=== PATIENT | female | born 1945 | race Caucasian/White ===

== ENCOUNTER → 2017-05-08 | Outpatient (CLI) | payer OTHER, MEDICARE | LOC: FIMAGING 13:04 | PROVIDERS: ATTEND Family Medicine | DX: R06.02 Shortness of breath (principal) ==

== ENCOUNTER → 2017-05-09 | Outpatient (CLI) | payer OTHER, MEDICARE | LOC: BHFA 14:00 | PROVIDERS: ATTEND Internal Medicine Interventional Cardiology | DX: R07.9 Chest pain, unspecified (principal); E78.5 Hyperlipidemia, unspecified; I10 Essential (primary) hypertension ==

== ENCOUNTER → 2017-05-22 | Outpatient (CLI) | payer OTHER, MEDICARE | LOC: BHFA 09:15 | PROVIDERS: ATTEND Internal Medicine Cardiovascular Disease | DX: R07.9 Chest pain, unspecified (principal); I10 Essential (primary) hypertension ==

== ENCOUNTER → 2017-06-21 | Outpatient (CLI) | payer OTHER, MEDICARE | LOC: BHFA 13:00 | PROVIDERS: ATTEND Internal Medicine Cardiovascular Disease | DX: R94.39 Abnormal result of other cardiovascular function study (principal) | CPT/HCPCS: 78452; 93017; A9500; J2785 ==

== ENCOUNTER → 2017-11-01 | Outpatient (CLI) | payer OTHER, MEDICARE | LOC: BMCIMAGING 15:17 | PROVIDERS: ATTEND Family Medicine | DX: R05 Cough (principal); R06.02 Shortness of breath ==

== ENCOUNTER 2017-11-17 07:31 | Observation (INO) | payer OTHER, MEDICARE ==
[2017-11-17] MEDS ORDERED: DIAZEPAM 5 MG TAB PO ONE (07:38)
[2017-11-17] MEDS ORDERED: diphenhydrAMINE 25 MG CAP PO ONE ×2 (07:38→08:18)
[2017-11-17] MEDS ORDERED: NS 1,000 ML IV ONE (07:38)
[2017-11-17] MEDS ORDERED: ASPIRIN EC 325 MG TAB PO ONE ×2 (07:38→08:18)
[2017-11-17] MEDS ORDERED: FAMOTIDINE 20 MG TAB PO ONE (07:38)
--- NOTE | 2017-11-17 08:09 | CPEKG ---
Heart Rate: 82 RR Interval: 732 P-R Interval: 148 QRSD Interval: 96 QT Interval: 384 QTC Interval: 449 P [place]: 68 QRS [place]: 35 T Wave [place]: 50 EKG Severity - NORMAL ECG - EKG Impression: SINUS RHYTHM Electronically Signed By: Albert Javier 17-Nov-2017 12:07:21
[2017-11-17] MEDS ORDERED: FAMOTIDINE 20 MG TAB ONE (08:18)
[2017-11-17] MEDS ORDERED: DIAZEPAM 5 MG TAB ONE (08:18)
[2017-11-17 08:22] LABS: PLATELET COUNT 279 10^3/uL (150-400)
[2017-11-17] MEDS ORDERED: LIDOCAINE 1% 300 MG/30 ML SDV ONE (08:31)
[2017-11-17] MEDS ORDERED: MIDAZOLAM 2 MG/2 ML VIAL ONE (08:31)
[2017-11-17] MEDS ORDERED: fentaNYL 100 MCG/2 ML INJ ONE ×2 (08:31→10:16)
[2017-11-17] MEDS ORDERED: IOPAMIDOL (ISOVUE-370) 150 ML BTL IV ONE (08:31)
[2017-11-17] MEDS ORDERED: ASPIRIN EC 81 MG TAB PO ONE (08:40)
[2017-11-17 08:43] LABS: INR 0.95 (0.83-1.16); PROTIME(PATIENT) 12.9 SEC (12.0-15.0)
--- NOTE | 2017-11-17 09:06 | PDPROPOC ---
Sedation Plan of Care Sedation Plan of Care: vital signs stable, mental status noted, patient educated of risks, benefits, alternatives, patient can tolerate sedation ASA Classification: ASA 2 Planned drugs: fentanyl, midazolam Mallampati Score: Class 2 Mallampati Reference Image: Patient passed 3-3-2 rule?: Yes
--- NOTE | 2017-11-17 09:07 | PDHPUP ---
History & Physical Update H&P update statement: This history and physical update is based on an assessment of the patient which was completed after admission or registration (within 24 hours), but prior to the surgery/procedure. H&P update: H&P reviewed & patient examined, no change in patient's condition since H&P completed
[2017-11-17] MEDS ORDERED: HEPARIN 10,000 UNIT/10 ML MDV ONE (09:34)
[2017-11-17] MEDS ORDERED: ATROPINE SULFATE 1 MG/10 ML SYR ONE (09:37)
[2017-11-17] MEDS ORDERED: NITROGLYCERIN 1,500 MCG/15 ML VIAL MISC ONE (09:37)
[2017-11-17] MEDS ORDERED: ONDANSETRON 4 MG/2 ML VIAL IVP PRN (11:06)
[2017-11-17] MEDS ORDERED: ATROPINE SULFATE 1 MG/10 ML SYR IVP PRN (11:06)
[2017-11-17] MEDS ORDERED: NITROGLYCERIN 0.4 MG BTL SL PRN (11:06)
--- NOTE | 2017-11-17 11:27 | CPIP ---
[f rep st] INVASIVE CARDIAC PROCEDURE DATE OF PROCEDURE: 11/17/2017 PROCEDURE PERFORMED: 1. Coronary angiography. 2. Left ventriculography. 3. Percutaneous coronary intervention of the right coronary artery. INDICATION: 1. Class 2 to 3 angina. 2. Intermediate risk nuclear stress test with inferior basal and mid-infarct with nayana-infarct ische kvng. ACCESS: Patient was prepped and draped in a sterile fashion. 1% lidocaine was used to anesthetize t he right inguinal region. A 6-[place] introducer sheath was placed selectively into the right common femoral artery via modified Seldinger technique. The 6-[place] introducer sheath was later exchanged for a 7-[place] introducer sheath via exchange wire technique. CORONARY ANGIOGRAPHY: A 6-[place] JL4 was advanced to the left main coronary artery and images obtain ed. The left main coronary artery bifurcated into an LAD and circumflex coronary arteries. The left main coronary artery appeared free of any significant disease. The left anterior descending coronar y artery was diffusely diseased in the proximal and mid segments. In the mid segment, the grade sten osis is approximately 20% to 30% in severity. The circumflex coronary artery was nondominant. Circu mflex coronary artery appeared normal. A 6-[place] JR4 was advanced to the right coronary artery and images obtained. The right coronary artery was dominant. The right coronary artery had a chronic to mee occlusion in the proximal to mid vessel. The distal vessel is being filled by left to right lara aterals. LEFT VENTRICULOGRAPHY: A 6-[place] pigtail catheter was advanced into the left ventricle and images o btained. The left ventricle is normal in size and had mildly reduced systolic function. The estimat ed ejection fraction was 50%. The basal and mid inferior segments were akinetic. Percutaneous coron haylee intervention of the right coronary artery [employer]. A 6-[place] JR4 catheter was advanced to the right coronary artery and images obtained. Angiography confirmed the presence of a [employer] involving the righ t coronary artery. A Cabinet Professional 50 wire was then advanced to the [employer] lesion. Several attempts were made a t trying to cross second 7-[place] JR4 catheter. This too was unsuccessful. Ultimately, a 7-[place] AR 1 catheter was advanced to the right coronary artery and several attempts were made at trying to pass the Cabinet Professional 50 wire into the distal vessel. These were unsuccessful. Attempts were made at passing a Cabinet Professional 150 wire into the distal vessel. These too were unsuccessful. A corsair catheter was then adv anced to the lesion with a Fielder XT wire. The Fielder XT wire here again would also not cross the l esion secondary to wire failure. The probe was then advanced through the corsair catheter to the lesi on. Several attempts were made at trying to pass this across the lesion. Failure was secondary to blayne dequate guide support. It was decided to hold intervention at this time. COMPLICATIONS: None. CONCLUSIONS: 1. Single-vessel coronary artery disease involving the right coronary artery. 2. Reduced left ventricular systolic function with an estimated ejection fraction of 50% with inferi or basal and mid hypokinesis. 3. Status post failed percutaneous coronary intervention of the right coronary artery [employer]. 4. Consider retrograde approach to the RCA [employer] versus surgical revascularization. /[id number]/MODL
[2017-11-17] MEDS: risperiDONE 0.5 MG TAB PO SCH (20:44)
[2017-11-17] MEDS ORDERED: amLODIPine BESYLATE 5 MG TAB PO SCH (21:00)
[2017-11-18] MEDS ORDERED: LEVOTHYROXINE 88 MCG TAB PO SCH (06:00)
[2017-11-18 07:27] VITALS: PULSE 76; RESP 14; TEMP 98; O2SAT 97
[2017-11-18] MEDS ORDERED: ZINC GLUCONATE 50 MG TAB PO SCH (08:00)
[2017-11-18] MEDS: risperiDONE 0.5 MG TAB PO SCH (08:24)
[2017-11-18 08:26] VITALS: BP 136/86
[2017-11-18] MEDS ORDERED: CHOLECALCIFEROL VIT D3 1,000 UNITS TAB PO SCH (09:00)
[2017-11-18] MEDS ORDERED: OLMESARTAN MEDOXOMIL 20 MG TAB PO SCH (09:00)
[2017-11-18] MEDS ORDERED: VENLAFAXINE XR 150 MG CAP PO SCH (09:00)
[2017-11-18] MEDS ORDERED: ASPIRIN EC 81 MG TAB PO SCH (09:00)
--- NOTE | 2017-11-18 09:42 | GDS ---
[f rep st] DISCHARGE SUMMARY DISCHARGE DIAGNOSES: 1. Coronary artery disease with totally occluded proximal right coronary artery with failed percutan eous coronary intervention. 2. Mildly reduced ejection fraction with an ejection fraction of 50%. 3. Hyperlipidemia. 4. Hypertension. HOSPITAL COURSE: For a detailed H and P, please see prior dictation. Briefly, the patient is a 72-y ear-old female with a family history of sudden cardiac . She presented to our office complainin g of dyspnea on exertion without chest discomfort. She had a nuclear stress test, which was abnormal , prompting an angiogram. The angiogram was performed by Dr. Elliot Ann on November 17, 2017. Her le ft main was free of disease. Her left anterior descending artery was diffusely diseased in the proxi mal and mid segments with greatest stenosis of 20% to 30%. The left circumflex artery was free of si gnificant disease. The right coronary artery was dominant and showed a chronic total occlusion in th e proximal to mid vessel. This was being filled by [id number] collaterals. Her ejection fraction was mildly depressed at 50% with inferior basal and mid hypokinesis. Multiple attempts were made to pass a wire across the chronic total occlusion of the right coronary artery but were unsuccessful. Ultimately, the decision was made to abort intervention and consider medical therapy. This was discu ssed with her the day of discharge. She will be started on Ranexa 500 mg b.i.d. She has also been s tarted on Lipitor 10 mg daily to help reduce her LDL, which is currently 108. The day of discharge, she denied any chest discomfort. Her right groin, where access was obtained fo r the angiogram, is clean and intact, without any evidence of hematoma or infection. PHYSICAL EXAMINATION: GENERAL: Patient appears in no acute distress. VITALS: Blood pressure 136/8 6, heart rate 76, oxygen saturation 97% on room air. Afebrile. LUNGS: Clear to auscultation. No w heezes, rhonchi, or crackles auscultated. CARDIAC: Regular rate and rhythm, without any significant murmurs, rubs, or gallops appreciated. SKIN: Right groin clean and intact, without any evidence of hematoma or infection. DISCHARGE MEDICATIONS: New medications are aspirin 162 mg daily, Lipitor 10 mg daily, Ranexa 500 mg b.i.d. She will continue Benicar 40 mg daily, zinc 50 mg daily, vitamin D3 1000 units daily, Synthro id 88 mcg daily, Risperdal 0.5 mg b.i.d., Norvasc 5 mg at bedtime, MiraLAX 17 g daily, herbal supplem ent daily, venlafaxine 300 mg daily, melatonin 5 mg at bedtime. PLAN: The patient has a known chronic total occlusion of the mid to proximal right coronary artery. She had failed attempted intervention of this stenosis. The patient was discussed with Dr. Ann, who was not confident that her shortness of breath was related to her chronic total occlusion of the right coronary artery. She will be started on medical therapy with Ranexa 500 mg b.i.d. and Lipitor 10 mg daily. She will need a fasting lipid profile and liver function tests in the next 2-3 months t o track her LDL. She is scheduled to follow up with Rubi, nurse practitioner, on November 29 at 3 p.m. She is also scheduled to see Dr. Ann on December 08 at 1:45. If she fails Ranexa therapy, fu rther consideration into a second attempt at PCI of that right coronary artery or surgical interventi on could be discussed. Groin precautions were discussed with the patient today. /[id number]/MODL
--- NOTE | 2017-11-18 12:35 | ASDISCHSUM ---
Discharge Information Plan Status:Home with No Needs Medically Cleared to Leave:11/17/2017 Discharge Date:11/18/2017 10:50 AM CM D/C Disposition:Home, Routine, Self-Care ADT D/C Disposition:Home, Routine, Self-Care Projected Discharge Date:11/18/2017 10:50 AM Transportation at D/C:Family Discharge Delay Reason: Follow-Up Date:11/18/2017 10:50 AM Discharge Slot:1 - 8:01 am - 12:00 noon Final Diagnosis:CAD w/ totally occluded proximal RCA w/ failed percutaneous coronary intervention, m ildly reduced EF at 50%, hyperlipidemia, HTN Placement Information Patient Contact Information Contact Name:SANTA Relationship: Address: Work Phone: City[place] Alternate Phone: [facility]/Zip Code:[place] Email: Financial Information Financial Class: Primary Plan Desc:MEDICARE OUTPATIENT Primary Plan Number:[id number] Secondary Plan Desc:[employer]/MDR SUPPLEMENT Secondary Plan Number:[id number] Assessment Information [facility] CM Progress Note CM Note CM Note Notes: Pt admitted for an abnormal nuclear stress test and scheduled angiogram. Per MD notes, pt diagnosed with CAD w/ a totally occluded proximal RCA w/ failed percutaneous coronary intervention; pt to discharge home independently w/ no identified needs. Pt to follow up as directed. No IM signed, admission <24 hrs. CM avail for any further issues or concerns. Discharge plan: Home independently Date Signed: 11/18/2017 12:35 PM Electronically Signed By:Diana Gold RN Intervention Information
== END 2017-11-18 10:50 | disposition home or self-care (01) ==
LOC: FCATH 07:31 → F2W 11:06
PROVIDERS: ADMIT Internal Medicine Cardiovascular Disease; ATTEND Internal Medicine Cardiovascular Disease
PROC: B2111ZZ Fluoroscopy of Multiple Coronary Arteries using Low Osmolar Contrast (ICD-10-PCS; principal; 2017-11-17)
PROC: 4A023N7 Measurement of Cardiac Sampling and Pressure, Left Heart, Percutaneous Approach (ICD-10-PCS; principal; 2017-11-17)
PROC: B2151ZZ Fluoroscopy of Left Heart using Low Osmolar Contrast (ICD-10-PCS; principal; 2017-11-17)
DX: I25.119 Atherosclerotic heart disease of native coronary artery with unspecified angina pectoris (principal); Z53.8 Procedure and treatment not carried out for other reasons; I10 Essential (primary) hypertension; E78.5 Hyperlipidemia, unspecified; E03.9 Hypothyroidism, unspecified; F32.9 Major depressive disorder, single episode, unspecified; F41.9 Anxiety disorder, unspecified; G40.909 Epilepsy, unspecified, not intractable, without status epilepticus; E55.9 Vitamin D deficiency, unspecified; M81.0 Age-related osteoporosis without current pathological fracture
CPT/HCPCS: 93005; 93458; C1769; C1887; J1644; J2250; J3010; Q9967; J0461

== ENCOUNTER 2018-10-12 19:23 | Emergency (ER) | payer OTHER, MEDICARE ==
--- NOTE | 2018-10-12 19:48 | EDPHY ---
H & P Stated Complaint: passed out, head injury Time Seen by Provider: 10/12/18 19:43 HPI/ROS: CHIEF COMPLAINT: Syncope, head injury HISTORY OF PRESENT ILLNESS: 73-year-old female presents after a syncopal episode with a head injury. She was walking to her car, had sudden onset of severe rectal pain and then had a witnessed syncopal episode. She hit her head on the ground. Gradually increasing headache since the syncopal episode. GRADY moderate now. The rectal discomfort was intense for several seconds and has completely resolved. No abd pain, chest pain or shortness of breath. No prior similar symptoms. REVIEW OF SYSTEMS: complete 10 point ROS reviewed and is negative except for the noted elements in the HPI - Personal History Current Tetanus Diphtheria and Acellular Pertussis (TDAP): Unsure Tetanus Vaccine Date: <10yrs - Medical/Surgical History Hx Asthma: No Hx Chronic Respiratory Disease: No Hx Diabetes: No Hx Cardiac Disease: No Hx Renal Disease: No Hx Cirrhosis: No Hx Alcoholism: No Hx HIV/AIDS: No Hx Splenectomy or Spleen Trauma: No Other PMH: PMHx: HTN, hypothyroid, depression,. PSHx: appy, tonsillectomy, Bilat leg stripped, hysterectomy, L4-L5 fusion, hemorrhoidectomy, reverse shoulder replacement Aug 2016 - Social History Smoking Status: Former smoker Alcohol Use: Sober - Physical Exam Exam: General Appearance: Alert, pleasant Head: Tenderness and swelling posteriorly Eyes: Pupils equal and round, no conjunctival pallor or injection ENT, Mouth: Mucous membranes moist Neck: Normal inspection, no tenderness, range of motion without pain Respiratory: Lungs are clear to auscultation Cardiovascular: Regular rate and rhythm Gastrointestinal: Abdomen is soft and nontender Anal: normal inspection, no tenderness or swelling Neurological: Alert, oriented x3, cranial nerves II through XII intact, motor 5 /5, sensory intact to light touch Skin: Warm and dry Extremities: Nontender, no pedal edema Psychiatric: Mood and affect normal Constitutional: Initial Vital Signs Temperature (C) 36.3 C 10/12/18 19:26 Heart Rate 82 10/12/18 19:26 Respiratory Rate 20 10/12/18 19:26 Blood Pressure 132/83 H 10/12/18 19:26 O2 Sat (%) 96 10/12/18 19:26 O2 Delivery Mode Room Air Allergies/Adverse Reactions: codeine [Codeine] Allergy (Intermediate, Verified 10/12/18 19:26) NAUSEA latex [Latex] Allergy (Intermediate, Verified 10/12/18 19:26) RASH, ITCH NSAIDS (Non-Steroidal Anti-Inflamma [Nsaids] Allergy (Mild, Verified 10/12/18 19 :26) STOMACH UPSET paroxetine Allergy (Verified 10/12/18 19:26) Home Medications: Medication Instructions Recorded Olmesartan Medoxomil [Benicar] 40 mg PO DAILY 07/22/16 Cholecalciferol Vit D3 [Vitamin D3 1,000 units PO DAILY 08/09/16 (*)] Levothyroxine [Synthroid 88 mcg 88 mcg PO DAILY06 08/09/16 (*)] Zinc Gluconate [Zinc] 50 mg PO DAILY 08/09/16 amLODIPine BESYLATE [Norvasc 5 mg 5 mg PO HS 08/09/16 (*)] risperiDONE [Risperdal 0.5mg (*)] 0.5 mg PO BID 08/09/16 Herbals/Supplements -Info Only 1 ea PO DAILY 11/15/17 Melatonin [Melatonin 5 mg] 5 mg PO HS 11/15/17 Polyethylene Glycol 3350 [Miralax 17 gm PO DAILY 11/15/17 17 gm (*)] Venlafaxine HCl [Venlafaxine HCl 300 mg PO DAILY 11/15/17 ER] Aspirin [Aspirin 81mg (*)] 162 mg PO DAILY #60 tab 11/18/17 Atorvastatin Calcium [Lipitor 10 10 mg PO DAILY #30 tab 11/18/17 mg (*)] Ranolazine [RANEXA 500mg (RX)] 500 mg PO BID #60 tab 11/18/17 Medical Decision Making - Diagnostics Imaging Results: Head CT 10/12/18 19:58 Impression: 1. No acute intracranial abnormality seen. 2. Soft tissue contusion over the right posterior parietal bone superiorly without fracture. If symptoms worsen, additional imaging may be necessary. Findings discussed with Taryn Levine M.D. at 20:43 hour, 10/12/2018. Imaging: Discussed imaging studies w/ solderer torch Radiologist, I viewed and interpreted images myself ED Course/Re-evaluation: This pt presents after a syncopal episode secondary to severe rectal pain. Normal abd/anal exam now, unclear etiology of pain, will obs. EKG reveals no evidence of ischemia or dysrhythmia, likely vasovagal syncope. CHI with normal neuro exam, moderate GRADY, advanced age. CT head ordered. Lab/CT results d/w pt. Continues to have GRADY, o/w asymptomatic. Abd remains soft, NT. Will d/c home, warning signs discussed. Differential Diagnosis: Ddx includes though not limited to ACS, hypoglycemia, electrolyte abn, ICH, thrombosed hemorrhoid, perianal abscess, intraabd infection, renal colic - Data Points Laboratory Results: Laboratory Results 10/12/18 20:00 10/12/18 20:00 Medications Given: Discontinued Medications Ibuprofen (Motrin) 600 mg PO EDNOW ONE Stop: 10/12/18 21:38 Last Admin: 10/12/18 21:39 Dose: 600 mg Departure - Departure Disposition: Home, Routine, Self-Care Clinical Impression: Syncope Qualifiers: Syncope type: vasovagal syncope Qualified Code(s): R55 - Syncope and collapse Head injury Qualifiers: Encounter type: initial encounter Qualified Code(s): S09.90XA - Unspecified injury of head, initial encounter Condition: Good Instructions: Syncope (ED), Head Injury (ED) Additional Instructions: Return for recurrent symptoms, any concerns. Referrals: Nicholas Parrish MD [Medical Doctor] - As per Instructions
[2018-10-12 20:20] LABS: PLATELET COUNT 278 10^3/uL (150-400)
[2018-10-12 21:35] VITALS: BP 148/106
[2018-10-12] MEDS ORDERED: IBUPROFEN 600 MG TAB PO ONE ×2 (21:36→21:37)
--- NOTE | 2018-10-12 23:10 | CPEKG ---
Test Reason : OPEN Blood Pressure : / mmHG Vent. Rate : 078 BPM Atrial Rate : 078 BPM P-R Int : 148 ms QRS Dur : 103 ms QT Int : 401 ms P-R-T Axes : 060 026 046 degrees QTc Int : 457 ms Sinus rhythm Confirmed by Taryn Levine ([id number]) on 10/12/2018 11:09:26 PM Referred By: Confirmed By:Taryn Levine
== END 2018-10-12 21:39 | disposition home or self-care (01) ==
DX: R55 Syncope and collapse (principal); S09.90XA Unspecified injury of head, initial encounter; X58.XXXA Exposure to other specified factors, initial encounter; Y92.9 Unspecified place or not applicable; Y93.9 Activity, unspecified; Z87.19 Personal history of other diseases of the digestive system

== ENCOUNTER → 2018-10-22 | Outpatient (CLI) | payer OTHER, MEDICARE | LOC: BMCIMAGING 15:05 | PROVIDERS: ATTEND Family Medicine | DX: I25.10 Atherosclerotic heart disease of native coronary artery without angina pectoris (principal); R42 Dizziness and giddiness ==

== ENCOUNTER 2018-10-28 13:36 | Emergency (ER) | payer OTHER, MEDICARE ==
--- NOTE | 2018-10-28 13:55 | EDPHY ---
H & P Stated Complaint: Severe pain in rectum Time Seen by Provider: 10/28/18 13:38 HPI/ROS: CHIEF COMPLAINT: Near syncope HISTORY OF PRESENT ILLNESS: 73-year-old female presents after a near syncopal episode. She was sitting in a car when she developed sudden onset of severe rectal pain. After onset of pain, she became dizzy and felt like she might faint. Associated with diaphoresis. The pain has now resolved and she feels much better. Prior similar episodes x2. Prior colonoscopy unremarkable except for internal hemorrhoids. REVIEW OF SYSTEMS: complete 10 point ROS reviewed and is negative except for the noted elements in the HPI - Personal History Current Tetanus/Diphtheria Vaccine: Yes Tetanus Vaccine Date: <10yrs - Medical/Surgical History Hx Asthma: No Hx Chronic Respiratory Disease: No Hx Diabetes: No Hx Cardiac Disease: No Hx Renal Disease: No Hx Cirrhosis: No Hx Alcoholism: No Hx HIV/AIDS: No Hx Splenectomy or Spleen Trauma: No Other PMH: PMHx: HTN, hypothyroid, depression,. PSHx: appy, tonsillectomy, Bilat leg stripped, hysterectomy, L4-L5 fusion, hemorrhoidectomy, reverse shoulder replacement Aug 2016 - Social History Smoking Status: Former smoker - Physical Exam Exam: General Appearance: Alert, pleasant Eyes: Pupils equal and round, no conjunctival pallor ENT, Mouth: Mucous membranes moist Neck: Normal inspection Respiratory: Lungs are clear to auscultation Cardiovascular: Regular rate and rhythm Gastrointestinal: Abdomen is soft and nontender Neurological: A&O, nonfocal, normal gait Skin: Warm and dry, no rash Extremities: Nontender, no pedal edema Psychiatric: Mood and affect normal Constitutional: Initial Vital Signs Temperature (C) 36.7 C 10/28/18 13:44 Heart Rate 73 10/28/18 13:44 Respiratory Rate 20 10/28/18 13:44 Blood Pressure 97/64 L 10/28/18 13:44 O2 Sat (%) 94 10/28/18 13:44 O2 Delivery Mode Room Air Allergies/Adverse Reactions: codeine [Codeine] Allergy (Intermediate, Verified 10/28/18 13:46) NAUSEA latex [Latex] Allergy (Intermediate, Verified 10/28/18 13:46) RASH, ITCH NSAIDS (Non-Steroidal Anti-Inflamma [Nsaids] Allergy (Mild, Verified 10/28/18 13 :46) STOMACH UPSET paroxetine Allergy (Verified 10/28/18 13:46) Home Medications: Medication Instructions Recorded Olmesartan Medoxomil [Benicar] 40 mg PO DAILY 07/22/16 Cholecalciferol Vit D3 [Vitamin D3 1,000 units PO DAILY 08/09/16 (*)] Levothyroxine [Synthroid 88 mcg 88 mcg PO DAILY06 08/09/16 (*)] Zinc Gluconate [Zinc] 50 mg PO DAILY 08/09/16 amLODIPine BESYLATE [Norvasc 5 mg 5 mg PO HS 08/09/16 (*)] risperiDONE [Risperdal 0.5mg (*)] 0.5 mg PO BID 08/09/16 Herbals/Supplements -Info Only 1 ea PO DAILY 11/15/17 Melatonin [Melatonin 5 mg] 5 mg PO HS 11/15/17 Polyethylene Glycol 3350 [Miralax 17 gm PO DAILY 11/15/17 17 gm (*)] Venlafaxine HCl [Venlafaxine HCl 300 mg PO DAILY 11/15/17 ER] Aspirin [Aspirin 81mg (*)] 162 mg PO DAILY #60 tab 11/18/17 Atorvastatin Calcium [Lipitor 10 10 mg PO DAILY #30 tab 11/18/17 mg (*)] Ranolazine [RANEXA 500mg (RX)] 500 mg PO BID #60 tab 11/18/17 Medical Decision Making - Diagnostics EKG Interpretation: EKG interpreted by me reveals normal sinus rhythm, rate 71, probable left atrial enlargement. Interpretation: Borderline EKG Imaging Results: Abdomen CT 10/28/18 14:01 Impression: 1. Constipation. 2. Mild bladder wall thickening which could be related to inflammation, infection, bladder outlet obstruction with chronic thickening, or other etiology. 3. Left L4 pedicle screw at the superior aspect of the pedicle and vertebral body with solid-appearing posterior fusion at L4-L5. 4. Multilevel degenerative change, as above. 5. Numerous noncalcified pulmonary nodules most likely representing noncalcified granulomas. If the patient is a smoker or is high risk, unenhanced low dose chest CT for follow up in 12 months is considered optional. Otherwise , no further follow-up is needed per Fleischner Society criteria. Imaging: Discussed imaging studies w/ call center support representative Radiologist ED Course/Re-evaluation: This patient presents with recurrent severe rectal pain, followed by hypotension /near-syncope. Stat EKG reveals no evidence of ischemia or dysrhythmia. Abdominal exam is benign. However given recurrent similar symptoms, CT scan of the abdomen pelvis was ordered to rule out serious etiology such as AAA/rectal abscess. CT scan is unremarkable, read by the radiologist. The patient's symptoms resolved and she was able to ambulate with a steady gait. Likely vasovagal episode secondary to severe pain. She was not dizzy. She will be discharged home. She will follow up with Gastroenterology for further evaluation of intermittent rectal pain. Abdominal exam remains benign on discharge. Differential Diagnosis: Differential diagnosis includes though is not limited to cardiac dysrhythmia, CVA, TIA, GI bleed, sepsis, hypoglycemia. - Data Points Laboratory Results: Laboratory Results 10/28/18 13:55 10/28/18 13:55 Point of Care Test Results: Chemistry 10/28/18 13:52 POC Troponin I 0.00 ng/mL ng/mL (0.00-0.08) Departure - Departure Disposition: Home, Routine, Self-Care Clinical Impression: Rectal pain, Near syncope Condition: Good Instructions: Near Syncope (ED), Rectal Pain (ED) Additional Instructions: 1. Follow-up with your road cleaner for further evaluation of rectal pain. Referrals: Adal Perdue MD [Medical Doctor] - As per Instructions (Call to make an appointment.)
[2018-10-28 14:03] LABS: PLATELET COUNT 258 10^3/uL (150-400)
[2018-10-28] MEDS ORDERED: IOPAMIDOL (ISOVUE-300) 100 ML BTL ONE (14:24)
[2018-10-28 16:11] VITALS: BP 144/81
--- NOTE | 2018-10-28 21:01 | CPEKG ---
Test Reason : OPEN Blood Pressure : / mmHG Vent. Rate : 071 BPM Atrial Rate : 071 BPM P-R Int : 168 ms QRS Dur : 084 ms QT Int : 390 ms P-R-T Axes : 079 036 027 degrees QTc Int : 424 ms Sinus rhythm Probable left atrial enlargement Confirmed by Taryn Levine ([id number]) on 10/28/2018 9:00:49 PM Referred By: Confirmed By:Taryn Levine
== END 2018-10-28 16:12 | disposition home or self-care (01) ==
LOC: EDUNIT#
DX: R55 Syncope and collapse (principal); K62.89 Other specified diseases of anus and rectum; I10 Essential (primary) hypertension; E03.9 Hypothyroidism, unspecified; Z87.891 Personal history of nicotine dependence
CPT/HCPCS: 74177; 93005; 99285; Q9967; 84484-PO

== ENCOUNTER → 2018-12-09 | Outpatient (CLI) | payer OTHER, MEDICARE | LOC: BMCIMAGING 12:41 | PROVIDERS: ATTEND Family Medicine | DX: S99.912A Unspecified injury of left ankle, initial encounter (principal) ==